=== PATIENT | female | born 1970 | race Two or more races ===

== ENCOUNTER 2018-06-07 12:27 | Emergency (ER) | payer OTHER ==
[~2018-06-07] VITALS: Ht 160 cm; Wt 49.9 kg
== END 2018-06-07 22:08 | disposition home or self-care (01) ==
LOC: ER 12:27
DX: N20.0 Calculus of kidney (principal); N39.0 Urinary tract infection, site not specified

== ENCOUNTER 2019-09-25 09:45 | Emergency (ER) | payer OTHER ==
[~2019-09-25] VITALS: Ht 157.5 cm; Wt 54.0 kg
== END 2019-09-25 14:57 | disposition home or self-care (01) ==
LOC: ER
DX: I16.0 Hypertensive urgency (principal); I10 Essential (primary) hypertension

== ENCOUNTER 2019-11-16 12:06 | Emergency (ER) | payer OTHER ==
[~2019-11-16] VITALS: Ht 154.9 cm; Wt 54.4 kg
== END 2019-11-16 14:45 | disposition home or self-care (01) ==
LOC: ER
DX: H66.91 Otitis media, unspecified, right ear (principal)